=== PATIENT | female | born 1965 | race Two or more races ===

== ENCOUNTER 2021-09-06 18:20 | Inpatient (IN) | payer MEDICAID ==
[~2021-09-06] VITALS: Ht 162.6 cm; Wt 65.8 kg
[2021-09-06 21:14] LABS: BASOPHILS % (AUTO) 0.6 % (0.0-2.0); EOSINOPHILS % (AUTO) 1.5 % (0.0-6.0); HEMATOCRIT 35 % (33-45); HEMOGLOBIN 11.3 g/dL (11.5-14.8); LYMPHOCYTES # (AUTO) 1.7 K/uL (0.8-4.8); LYMPHOCYTES % (AUTO) 33.5 % (20.0-44.0); MEAN CORPUSCULAR HGB CONC 32 g/dl (31.0-36.0); MEAN CORPUSCULAR VOLUME 84 fL (82-100); MONOCYTES # (AUTO) 0.3 K/uL (0.1-1.30); MONOCYTES % (AUTO) 6.3 % (2.0-12.0); NEUTROPHILS % (AUTO) 58.1 % (43.0-81.0); PLATELET COUNT (AUTO) 183 K/uL (150-450); RED BLOOD CELL COUNT(AUTO) 4.17 MIL/uL (4.0-5.2); WHITE BLOOD COUNT (AUTO) 5.1 K/uL (4.3-11.0)
[2021-09-06 21:32] LABS: CALCIUM, SERUM 8.5 mg/dL (8.5-10.1); CREATININE 5.7 mg/dL (0.6-1.3); POTASSIUM 5.6 mmol/L (3.5-5.1)
[2021-09-06 21:34] LABS: BILIRUBIN,URINE NEGATIVE (NEGATIVE); COLOR,URINE YELLOW (YELLOW); LEUKOCYTE ESTERASE ,URINE MODERATE (NEGATIVE); NITRITE, URINE NEGATIVE (NEGATIVE); PH,URINE 7.5 (5.0-8.0); PROTEIN,URINE TRACE mg/dl (NEGATIVE); UGLUCOSE >=1000 mg/dL (NEGATIVE); UROBILINOGEN,URINE 0.2 EU/dL (0.2)
[2021-09-06 21:41] LABS: BACTERIA,URINE 4+ /HPF (None Seen); SQUAMOUS EPITHELIAL CELL,UR 0-2 /HPF (None Seen); WBC,URINE 51-80 /HPF (0-3)
[2021-09-06] MEDS ORDERED: INSULIN REGULAR, HUMAN 100 UNIT/ML 10 ML VIAL ONE (22:20)
[2021-09-06] MEDS ORDERED: CEFTRIAXONE 1 G in IV D5W 50 ML IV ONE (22:30)
[2021-09-06] MEDS ORDERED: INSULIN REGULAR, HUMAN 100 UNIT/ML 10 ML VIAL SQ ONE (22:30)
[2021-09-06] MEDS ORDERED: CEFTRIAXONE 1GM BAG (ER ONLY) 50 ML IV ONE (23:36)
[2021-09-07 02:32] LABS: CALCIUM, SERUM 8.7 mg/dL (8.5-10.1); CREATININE 5.8 mg/dL (0.6-1.3); POTASSIUM 4.7 mmol/L (3.5-5.1)
[2021-09-07] MEDS ORDERED: ACETAMINOPHEN 325 MG TABLET PO PRN (03:30)
[2021-09-07] MEDS ORDERED: MAG HYDROX/AL HYDROX/SIMETH 30 ML UDC PO PRN (03:30)
[2021-09-07] MEDS ORDERED: ZOLPIDEM TARTRATE 5 MG TABLET PO PRN (03:30)
[2021-09-07] MEDS ORDERED: Z GUARD REMEDY 4 OZ OINT TP PRN (03:30)
[2021-09-07] MEDS ORDERED: ONDANSETRON HCL/PF 4 MG/2 ML VIAL IVP PRN (03:30)
[2021-09-07] MEDS ORDERED: DEXTROSE 50%-WATER 50 ML DISP.SYRIN IV PRN (03:30)
[2021-09-07] MEDS ORDERED: MAGNESIUM HYDROXIDE 30 ML UDC PO PRN (03:30)
[2021-09-07] MEDS ORDERED: IV NS 0.9% 1,000 ML IV SCH (03:30)
[2021-09-07] MEDS: BLOOD SUGAR DIAGNOSTIC 1 EACH STRIP IN SCH ×4 (07:30→22:58)
[2021-09-07] MEDS ORDERED: INSULIN REGULAR, HUMAN 100 UNIT/ML 10 ML VIAL ONE (07:57)
[2021-09-07] MEDS: INSULIN REGULAR, HUMAN 100 UNIT/ML 3 ML VIAL SQ PRN ×2 (07:58→18:25)
[2021-09-07] MEDS ORDERED: BUME1TAB34 PO (12:57)
[2021-09-07] MEDS ORDERED: CARV12.52 PO (12:57)
[2021-09-07] MEDS ORDERED: INSU100V7 SQ (12:57)
[2021-09-07] MEDS ORDERED: ATOV750O PO (12:57)
[2021-09-07] MEDS ORDERED: AMLO10TA4 PO (12:57)
[2021-09-07] MEDS ORDERED: ERGO500093 PO (12:57)
[2021-09-07] MEDS ORDERED: SEVE800T8 PO (12:57)
[2021-09-07] MEDS ORDERED: INSU100V39 SQ (12:57)
[2021-09-07] MEDS ORDERED: HYDR-4075 PO (12:57)
[2021-09-07] MEDS ORDERED: MULT-754 PO (12:57)
[2021-09-07] MEDS ORDERED: CALC667C6 PO (12:57)
[2021-09-07] MEDS ORDERED: FERR325T23 PO (12:57)
[2021-09-07] MEDS: CEFTRIAXONE 1 G in IV D5W 50 ML IV SCH (23:27)
[2021-09-08 06:49] LABS: BASOPHILS % (AUTO) 0.5 % (0.0-2.0); EOSINOPHILS % (AUTO) 0.4 % (0.0-6.0); HEMATOCRIT 39 % (33-45); HEMOGLOBIN 12.7 g/dL (11.5-14.8); LYMPHOCYTES # (AUTO) 1.2 K/uL (0.8-4.8); LYMPHOCYTES % (AUTO) 28.4 % (20.0-44.0); MEAN CORPUSCULAR HGB CONC 32 g/dl (31.0-36.0); MEAN CORPUSCULAR VOLUME 84 fL (82-100); MONOCYTES # (AUTO) 0.3 K/uL (0.1-1.30); MONOCYTES % (AUTO) 6.6 % (2.0-12.0); NEUTROPHILS # (AUTO) 2.8 K/uL (1.8-8.9); NEUTROPHILS % (AUTO) 64.1 % (43.0-81.0); PLATELET COUNT (AUTO) 229 K/uL (150-450); RED BLOOD CELL COUNT(AUTO) 4.68 MIL/uL (4.0-5.2); WHITE BLOOD COUNT (AUTO) 4.4 K/uL (4.3-11.0)
[2021-09-08] MEDS: BLOOD SUGAR DIAGNOSTIC 1 EACH STRIP IN SCH ×5 (07:52→21:56)
[2021-09-08 08:00] VITALS: BP 105/67
[2021-09-08 08:38] LABS: CALCIUM, SERUM 9.4 mg/dL (8.5-10.1); CREATININE 5.9 mg/dL (0.6-1.3); MAGNESIUM 2.1 mg/dL (1.8-2.4); PHOSPHORUS 7.9 mg/dL (2.5-4.9); POTASSIUM 5.1 mmol/L (3.5-5.1)
[2021-09-08] MEDS: INSULIN REGULAR, HUMAN 100 UNIT/ML 3 ML VIAL SQ PRN ×3 (12:41→21:58)
[2021-09-08] MEDS: SEVELAMER CARBONATE 800 MG TABLET PO SCH ×2 (12:45→17:26)
[2021-09-08] MEDS ORDERED: QUETIAPINE FUMARATE 100 MG TABLET PO SCH ×2 (14:00→22:00)
[2021-09-08] MEDS ORDERED: ALTEPLASE CATHFLO 2 MG/VIAL XX ONE (15:30)
[2021-09-08 15:36] VITALS: BP 115/75
[2021-09-08] MEDS: GABAPENTIN 400 MG CAPSULE PO SCH (17:00)
[2021-09-08 20:00] VITALS: BP 119/80
[2021-09-08] MEDS: HALOPERIDOL 5 MG TABLET PO SCH (21:30)
[2021-09-08] MEDS ORDERED: DEXTROSE 50%-WATER 50 ML DISP.SYRIN IV PRN (22:00)
[2021-09-08] MEDS: CEFTRIAXONE 1 G in IV D5W 50 ML IV SCH (22:34)
[2021-09-09 06:21] LABS: BASOPHILS % (AUTO) 0.5 % (0.0-2.0); EOSINOPHILS % (AUTO) 1.9 % (0.0-6.0); HEMATOCRIT 32 % (33-45); LYMPHOCYTES # (AUTO) 1.9 K/uL (0.8-4.8); LYMPHOCYTES % (AUTO) 50.4 % (20.0-44.0); MEAN CORPUSCULAR HGB CONC 32 g/dl (31.0-36.0); MEAN CORPUSCULAR VOLUME 85 fL (82-100); MONOCYTES # (AUTO) 0.2 K/uL (0.1-1.30); MONOCYTES % (AUTO) 6.3 % (2.0-12.0); NEUTROPHILS # (AUTO) 1.5 K/uL (1.8-8.9); NEUTROPHILS % (AUTO) 40.9 % (43.0-81.0); PLATELET COUNT (AUTO) 173 K/uL (150-450); WHITE BLOOD COUNT (AUTO) 3.8 K/uL (4.3-11.0)
[2021-09-09 06:36] LABS: CALCIUM, SERUM 8.2 mg/dL (8.5-10.1); CREATININE 5.2 mg/dL (0.6-1.3); PHOSPHORUS 5.5 mg/dL (2.5-4.9); POTASSIUM 3.8 mmol/L (3.5-5.1)
[2021-09-09] MEDS: BLOOD SUGAR DIAGNOSTIC 1 EACH STRIP IN SCH ×2 (07:16→22:00)
[2021-09-09] MEDS: SEVELAMER CARBONATE 800 MG TABLET PO SCH ×4 (08:00→18:00)
[2021-09-09 08:24] VITALS: BP 103/69
[2021-09-09] MEDS: GABAPENTIN 400 MG CAPSULE PO SCH ×4 (09:00→17:00)
[2021-09-09] MEDS: QUETIAPINE FUMARATE 100 MG TABLET PO SCH ×3 (09:00→22:33)
[2021-09-09] MEDS: HALOPERIDOL 5 MG TABLET PO SCH ×3 (09:00→22:32)
[2021-09-09] MEDS ORDERED: ZOLPIDEM TARTRATE 5 MG TABLET PO PRN (09:00)
[2021-09-09] MEDS: CALCIUM ACETATE 667 MG CAP/TAB PO SCH ×2 (13:00→18:00)
[2021-09-09] MEDS ORDERED: diphenhydrAMINE HCL 50 MG/ML VIAL IM STA (16:05)
[2021-09-09] MEDS ORDERED: HALOPERIDOL LACTATE INJ 5 MG/ML VIAL IM STA (16:05)
[2021-09-09] MEDS ORDERED: LORAZEPAM INJ 2 MG/ML VIAL IM STA (16:05)
[2021-09-09] MEDS: CARVEDILOL 12.5 MG TABLET PO SCH (17:00)
[2021-09-09] MEDS: hydrALAZINE HCL 10 MG TABLET PO SCH (17:00)
[2021-09-09] MEDS ORDERED: ALBUMIN 25% 25 GM in PREMIX 1 EA IV PRN (21:00)
[2021-09-09 21:27] VITALS: BP 106/59
[2021-09-09] MEDS: INSULIN GLARGINE, 100 UNIT/ML CARTRIDGE SQ SCH (23:17)
[2021-09-09] MEDS: INSULIN REGULAR, HUMAN 100 UNIT/ML 3 ML VIAL SQ PRN (23:33)
[2021-09-10] MEDS: CEFTRIAXONE 1 G in IV D5W 50 ML IV SCH ×2 (00:05→22:09)
[2021-09-10] MEDS ORDERED: DEXTROSE 50%-WATER 50 ML DISP.SYRIN IV PRN (05:30)
[2021-09-10] MEDS ORDERED: *INSULIN REGULAR(HUMULIN R)HUM 100 UNIT/ML VIAL SQ PRN (05:30)
[2021-09-10] MEDS: BLOOD SUGAR DIAGNOSTIC 1 EACH STRIP VI SCH ×4 (07:05→21:29)
[2021-09-10] MEDS: INSULIN REGULAR, HUMAN 100 UNIT/ML 3 ML VIAL SQ PRN ×4 (07:09→18:39)
[2021-09-10 07:11] LABS: BASOPHILS % (AUTO) 0.5 % (0.0-2.0); EOSINOPHILS % (AUTO) 2.2 % (0.0-6.0); HEMATOCRIT 35 % (33-45); HEMOGLOBIN 11.2 g/dL (11.5-14.8); LYMPHOCYTES # (AUTO) 1.8 K/uL (0.8-4.8); LYMPHOCYTES % (AUTO) 46.7 % (20.0-44.0); MEAN CORPUSCULAR HGB CONC 32 g/dl (31.0-36.0); MEAN CORPUSCULAR VOLUME 84 fL (82-100); MONOCYTES # (AUTO) 0.4 K/uL (0.1-1.30); MONOCYTES % (AUTO) 9.9 % (2.0-12.0); NEUTROPHILS # (AUTO) 1.5 K/uL (1.8-8.9); NEUTROPHILS % (AUTO) 40.7 % (43.0-81.0); PLATELET COUNT (AUTO) 177 K/uL (150-450); RED BLOOD CELL COUNT(AUTO) 4.13 MIL/uL (4.0-5.2); WHITE BLOOD COUNT (AUTO) 3.8 K/uL (4.3-11.0)
[2021-09-10 07:28] LABS: CALCIUM, SERUM 8.4 mg/dL (8.5-10.1); CREATININE 4.9 mg/dL (0.6-1.3); MAGNESIUM 2.2 mg/dL (1.8-2.4); POTASSIUM 4.1 mmol/L (3.5-5.1)
[2021-09-10] MEDS ORDERED: SEVELAMER CARBONATE 800 MG TABLET PO SCH (09:00)
[2021-09-10] MEDS: hydrALAZINE HCL 10 MG TABLET PO SCH ×2 (09:00→17:00)
[2021-09-10] MEDS: GABAPENTIN 400 MG CAPSULE PO SCH ×3 (09:02→18:31)
[2021-09-10] MEDS: SEVELAMER CARBONATE 800 MG TABLET PO SCH ×3 (09:02→18:32)
[2021-09-10] MEDS: MULTIVITAMINS,THERAGRAN 1 UDTAB TABLET PO SCH (09:02)
[2021-09-10] MEDS: CALCIUM ACETATE 667 MG CAP/TAB PO SCH ×3 (09:02→18:32)
[2021-09-10] MEDS: QUETIAPINE FUMARATE 100 MG TABLET PO SCH ×2 (09:02→21:29)
[2021-09-10] MEDS: FERROUS SULFATE (325 MG) 325 MG/TAB TABLET PO SCH (09:03)
[2021-09-10] MEDS: HALOPERIDOL 5 MG TABLET PO SCH ×2 (09:03→21:29)
[2021-09-10] MEDS: AMLODIPINE BESYLATE 10 MG TABLET PO SCH (09:04)
[2021-09-10] MEDS: CARVEDILOL 12.5 MG TABLET PO SCH ×2 (09:04→17:00)
[2021-09-10 20:00] VITALS: BP 114/72
[2021-09-10] MEDS: INSULIN GLARGINE, 100 UNIT/ML CARTRIDGE SQ SCH (21:39)
[2021-09-11] MEDS: BLOOD SUGAR DIAGNOSTIC 1 EACH STRIP VI SCH ×2 (06:32→12:13)
[2021-09-11] MEDS: INSULIN REGULAR, HUMAN 100 UNIT/ML 3 ML VIAL SQ PRN ×2 (06:33→12:15)
[2021-09-11 07:38] LABS: HEMOGLOBIN 11.8 g/dL (11.5-14.8)
[2021-09-11 08:06] LABS: BASOPHILS # (AUTO) 0.1 K/uL (0.0-0.2); BASOPHILS % (AUTO) 0.8 % (0.0-2.0); EOSINOPHILS % (AUTO) 2.5 % (0.0-6.0); HEMATOCRIT 37 % (33-45); LYMPHOCYTES # (AUTO) 3.9 K/uL (0.8-4.8); LYMPHOCYTES % (AUTO) 48.2 % (20.0-44.0); MEAN CORPUSCULAR HGB CONC 32 g/dl (31.0-36.0); MEAN CORPUSCULAR VOLUME 86 fL (82-100); MONOCYTES # (AUTO) 0.7 K/uL (0.1-1.30); NEUTROPHILS # (AUTO) 3.2 K/uL (1.8-8.9); NEUTROPHILS % (AUTO) 39.5 % (43.0-81.0); RED BLOOD CELL COUNT(AUTO) 4.32 MIL/uL (4.0-5.2)
[2021-09-11 08:26] VITALS: BP 95/60
[2021-09-11 08:52] LABS: CREATININE 5.5 mg/dL (0.6-1.3); MAGNESIUM 2.5 mg/dL (1.8-2.4); PHOSPHORUS 7.6 mg/dL (2.5-4.9); POTASSIUM 4.9 mmol/L (3.5-5.1)
[2021-09-11] MEDS: CARVEDILOL 12.5 MG TABLET PO SCH (09:00)
[2021-09-11] MEDS: hydrALAZINE HCL 10 MG TABLET PO SCH (09:00)
[2021-09-11] MEDS: AMLODIPINE BESYLATE 10 MG TABLET PO SCH (09:00)
[2021-09-11] MEDS: GABAPENTIN 400 MG CAPSULE PO SCH ×2 (09:51→12:19)
[2021-09-11] MEDS: HALOPERIDOL 5 MG TABLET PO SCH (09:52)
[2021-09-11] MEDS: QUETIAPINE FUMARATE 100 MG TABLET PO SCH (09:52)
[2021-09-11] MEDS: MULTIVITAMINS,THERAGRAN 1 UDTAB TABLET PO SCH (09:52)
[2021-09-11] MEDS: FERROUS SULFATE (325 MG) 325 MG/TAB TABLET PO SCH (09:53)
[2021-09-11] MEDS: CALCIUM ACETATE 667 MG CAP/TAB PO SCH ×2 (10:05→12:19)
[2021-09-11] MEDS: SEVELAMER CARBONATE 800 MG TABLET PO SCH ×2 (10:07→12:19)
[2021-09-11 11:28] LABS: CALCIUM, SERUM 8.5 mg/dL (8.5-10.1)
[2021-09-11] MEDS ORDERED: INSU100V7 SQ (14:40)
[2021-09-11] MEDS ORDERED: Quetiapine Fumarate PO ×2 (14:40)
[2021-09-11] MEDS ORDERED: GABA-536 PO (14:40)
[2021-09-11] MEDS ORDERED: SEVE800T7 PO (14:40)
[2021-09-11] MEDS ORDERED: HALO5TAB8 PO ×2 (14:40)
[2021-09-11] MEDS ORDERED: QUET400T PO (14:41)
[2021-09-11 16:11] VITALS: BP 95/60
[2021-09-11 16:59] LABS: PLATELET COUNT (AUTO) 152 K/uL (150-450)
[2021-09-13] MEDS ORDERED: ERGOCALCIFEROL (VITAMIN D 2) 50,000 UNIT CAPSULE PO SCH (09:00)
== END 2021-09-11 16:15 | disposition home or self-care (01) | DRG 420 ==
LOC: ER 18:47 → TRANSITION 09-07 07:41 → TELE 09-07 08:07 → MED 09-07 08:54
PROVIDERS: ADMIT Family Medicine; ATTEND Student in an Organized Health Care Education/Training Program
PROC: 5A1D70Z Performance of Urinary Filtration, Intermittent, Less than 6 Hours Per Day (ICD-10-PCS; principal; 2021-09-09)
DX: E11.65 Type 2 diabetes mellitus with hyperglycemia (principal); E11.22 Type 2 diabetes mellitus with diabetic chronic kidney disease; I12.0 Hypertensive chronic kidney disease with stage 5 chronic kidney disease or end stage renal disease; E83.39 Other disorders of phosphorus metabolism; N39.0 Urinary tract infection, site not specified; B96.20 Unspecified Escherichia coli [E. coli] as the cause of diseases classified elsewhere; E83.9 Disorder of mineral metabolism, unspecified; F25.9 Schizoaffective disorder, unspecified; N18.6 End stage renal disease; Z99.2 Dependence on renal dialysis; E87.5 Hyperkalemia; E86.1 Hypovolemia; M89.9 Disorder of bone, unspecified; Z79.4 Long term (current) use of insulin; Z79.899 Other long term (current) drug therapy; Z20.822 Contact with and (suspected) exposure to COVID-19
CPT/HCPCS: 36415; 80048-TC; 81001; 82962-TC; 83735-TC; 83970; 84100-TC; 85025-TC; 86706; 87040-TC; 87081-TC; 87086-TC; 87186-TC; 87340; 90935-TC; C9803; G0378; J0696; J1200; J1630; J1815; J2060; J2405; J2997; J7030; J7050; J7060

== ENCOUNTER 2024-03-29 22:35 | Inpatient (IN) | payer MEDICARE, OTHER ==
[~2024-03-29] VITALS: Ht 167.6 cm; Wt 77.1 kg
[~2024-03-29 22:35] MED LIST: AMLO10TA4 PO; ATOV750O PO; BUME1TAB34 PO; CALC667C6 PO; CARV12.52 PO; ERGO500093 PO; FERR325T23 PO; GABA-536 PO; HALO5TAB8 PO; HYDR-4075 PO; INSU100V39 SQ; INSU100V7 SQ; MULT-754 PO; QUET400T PO; SEVE800T7 PO; SEVE800T8 PO
[2024-03-29] MEDS: IV NS 0.9% 1,000 ML BAG IV ONE (23:05)
[2024-03-29 23:31] LABS: BASOPHILS % (AUTO) 0.6 % (0.0-2.0); EOSINOPHILS # (AUTO) 0.1 K/uL (0.0-0.7); EOSINOPHILS % (AUTO) 1.8 % (0.0-6.0); HEMATOCRIT 36 % (33-45); HEMOGLOBIN 11.6 g/dL (11.5-14.8); LYMPHOCYTES # (AUTO) 1.1 K/uL (0.8-4.8); LYMPHOCYTES % (AUTO) 25.7 % (20.0-44.0); MEAN CORPUSCULAR HEMOGLOBIN 30 PG (26.0-33.0); MEAN CORPUSCULAR HGB CONC 32 g/dl (31.0-36.0); MEAN CORPUSCULAR VOLUME 93 fL (82-100); MONOCYTES # (AUTO) 0.4 K/uL (0.1-1.30); MONOCYTES % (AUTO) 9.8 % (2.0-12.0); NEUTROPHILS # (AUTO) 2.6 K/uL (1.8-8.9); NEUTROPHILS % (AUTO) 62.1 % (43.0-81.0); PLATELET COUNT (AUTO) 171 K/uL (150-450); RED BLOOD CELL COUNT(AUTO) 3.86 MIL/uL (4.0-5.2); RED CELL DISTRIBUTION WIDTH 14.7 % (11.5-15.0); WHITE BLOOD COUNT (AUTO) 4.2 K/uL (4.3-11.0)
[2024-03-29 23:49] LABS: INR 1.03 (0.91-1.10); PARTIAL THROMBOPLASTIN TIME 29.3 SEC (24.3-34.3); PROTHROMBIN TIME 10.9 SECS (9.2-11.1)
[2024-03-29 23:57] LABS: CALCIUM, SERUM 8.2 mg/dL (8.5-10.1); CARBON DIOXIDE 22 mmol/L (21-32); CHLORIDE 100 mmol/L (98-107); CREATININE 6.1 mg/dL (0.6-1.3); GLUCOSE 215 mg/dL (74-106); POTASSIUM 4.4 mmol/L (3.5-5.1); SODIUM SERUM 137 mmol/L (136-145); UREA NITROGEN, BLOOD 32 mg/dL (7-18)
[2024-03-29 23:58] LABS: SERUM AMMONIA 22 umol/L (11-32)
[2024-03-30] VITALS (7 sets, daily range): BP systolic 80–114; BP diastolic 43–70; TEMP 97.5–98.1; O2SAT 96–100
[2024-03-30 00:03] LABS: ALCOHOL, BLOOD 3 mg/dL (0-10)
[2024-03-30 00:04] LABS: LACTIC ACID 1.7 mmol/L (0.4-2.0)
[2024-03-30 00:05] LABS: ACETAMINOPHEN <10 ug/ml (10-30); SALICYLATE 2.1 mg/dL (2.8-20.0)
[2024-03-30] MEDS: IV NS 0.9% 1,000 ML BAG IV ONE (00:05)
[2024-03-30 00:11] LABS: ALANINE AMINOTRANSFERASE 10 U/L (12-78); ALKALINE PHOSPHATASE 322 U/L (46-116); ASPARTATE AMINOTRANSFERASE 9 U/L (15-37); BILIRUBIN,DIRECT 0.1 mg/dL (0.0-0.2); BILIRUBIN,TOTAL 0.3 mg/dL (0.2-1.0); LIPASE 57 U/L (16-77); TOTAL PROTEIN, SERUM 7.1 g/dL (6.4-8.2)
[2024-03-30] MEDS ORDERED: ZOLPIDEM TARTRATE 5 MG TABLET PO PRN (02:30)
[2024-03-30] MEDS ORDERED: MAG HYDROX/AL HYDROX/SIMETH 30 ML UDC PO PRN (02:30)
[2024-03-30] MEDS ORDERED: ENOXAPARIN SODIUM 40 MG/0.4 ML DISP.SYRIN SQ SCH (02:30)
[2024-03-30] MEDS ORDERED: Z GUARD REMEDY 4 OZ OINT TP PRN (02:30)
[2024-03-30] MEDS ORDERED: MAGNESIUM HYDROXIDE 30 ML UDC PO PRN (02:30)
[2024-03-30] MEDS ORDERED: INSULIN REGULAR, HUMAN 100 UNIT/ML 10 ML VIAL SQ ONE (02:30)
[2024-03-30] MEDS ORDERED: ONDANSETRON HCL/PF 4 MG/2 ML VIAL IVP PRN (02:30)
[2024-03-30] MEDS ORDERED: [UNRECOGNIZED DRUG - OTHER] SQ PRN (03:00)
[2024-03-30] MEDS ORDERED: INSULIN REGULAR, HUMAN 100 UNIT/ML 3 ML VIAL SQ PRN (03:00)
[2024-03-30] MEDS ORDERED: [UNRECOGNIZED DRUG - OTHER] SQ PRN ×5 (03:00)
[2024-03-30] MEDS ORDERED: DEXTROSE 50%-WATER 50 ML DISP.SYRIN IV PRN ×2 (03:00→12:00)
[2024-03-30 03:30] LABS: CALCIUM, SERUM 8.2 mg/dL (8.5-10.1); CARBON DIOXIDE 25 mmol/L (21-32); CHLORIDE 102 mmol/L (98-107); CREATININE 6.2 mg/dL (0.6-1.3); GLUCOSE 193 mg/dL (74-106); POTASSIUM 4.1 mmol/L (3.5-5.1); SODIUM SERUM 137 mmol/L (136-145); UREA NITROGEN, BLOOD 33 mg/dL (7-18)
[2024-03-30 03:44] LABS: ALBUMIN 2.9 g/dL (3.4-5.0); ALKALINE PHOSPHATASE 313 U/L (46-116); ASPARTATE AMINOTRANSFERASE 8 U/L (15-37); BILIRUBIN,DIRECT 0.1 mg/dL (0.0-0.2); BILIRUBIN,TOTAL 0.2 mg/dL (0.2-1.0); MAGNESIUM 2.1 mg/dL (1.8-2.4); PHOSPHORUS 6.8 mg/dL (2.5-4.9); TOTAL PROTEIN, SERUM 6.8 g/dL (6.4-8.2)
[2024-03-30 03:46] LABS: ALANINE AMINOTRANSFERASE < 6 U/L (12-78)
[2024-03-30] MEDS ORDERED: [UNRECOGNIZED DRUG - OTHER] IN SCH (07:30)
[2024-03-30] MEDS: PANTOPRAZOLE 40 MG TABLET.DR PO SCH (08:15)
[2024-03-30] MEDS: BLOOD SUGAR DIAGNOSTIC 1 EACH STRIP IN SCH ×3 (08:15→16:56)
[2024-03-30] MEDS: MIDODRINE HCL (5MG) 5 MG TABLET PO SCH (08:26)
[2024-03-30] MEDS: INSULIN REGULAR, HUMAN 100 UNIT/ML 3 ML VIAL SQ PRN (12:01)
[2024-03-30] MEDS: HEPARIN SODIUM, PORCINE 5000 UNITS/1 ML VIAL SQ SCH (12:30)
[2024-03-30] MEDS ORDERED: DEXTROSE 50%-WATER 50 ML DISP.SYRIN IVP PRN (15:30)
[2024-03-30] MEDS ORDERED: ERGOCALCIFEROL (VITAMIN D 2) 50,000 UNIT CAPSULE PO SCH (16:00)
[2024-03-30 16:14] LABS: BASOPHILS % (AUTO) 0.5 % (0.0-2.0); EOSINOPHILS # (AUTO) 0.1 K/uL (0.0-0.7); EOSINOPHILS % (AUTO) 2.6 % (0.0-6.0); HEMATOCRIT 31 % (33-45); HEMOGLOBIN 9.9 g/dL (11.5-14.8); LYMPHOCYTES # (AUTO) 1.3 K/uL (0.8-4.8); LYMPHOCYTES % (AUTO) 39.6 % (20.0-44.0); MEAN CORPUSCULAR HEMOGLOBIN 30 PG (26.0-33.0); MEAN CORPUSCULAR HGB CONC 32 g/dl (31.0-36.0); MEAN CORPUSCULAR VOLUME 92 fL (82-100); MONOCYTES # (AUTO) 0.3 K/uL (0.1-1.30); MONOCYTES % (AUTO) 8.5 % (2.0-12.0); NEUTROPHILS # (AUTO) 1.6 K/uL (1.8-8.9); NEUTROPHILS % (AUTO) 48.8 % (43.0-81.0); PLATELET COUNT (AUTO) 153 K/uL (150-450); RED BLOOD CELL COUNT(AUTO) 3.34 MIL/uL (4.0-5.2); RED CELL DISTRIBUTION WIDTH 14.8 % (11.5-15.0); WHITE BLOOD COUNT (AUTO) 3.4 K/uL (4.3-11.0)
[2024-03-30] MEDS: ACETAMINOPHEN 325 MG TABLET PO PRN (16:31)
[2024-03-30] MEDS: GABAPENTIN 400 MG CAPSULE PO SCH (16:59)
[2024-03-30] MEDS: QUETIAPINE FUMARATE 100 MG TABLET PO SCH (17:00)
[2024-03-30] MEDS: CALCIUM ACETATE 667 MG CAP/TAB PO SCH (17:03)
[2024-03-30] MEDS: SEVELAMER CARBONATE 800 MG TABLET PO SCH (17:03)
[2024-03-30] MEDS: CEFEPIME 1 GM in IV D5W 50 ML IV SCH (17:56)
[2024-03-30] MEDS: VANCOMYCIN HCL 1.25 GM in IV D5W 250 ML IV ONE (18:12)
[2024-03-30] MEDS ORDERED: HALO5TAB8 PO (18:19)
[2024-03-30] MEDS ORDERED: TRAZ150T75 PO (18:19)
[2024-03-30] MEDS ORDERED: QUET400T PO (18:19)
[2024-03-30] MEDS ORDERED: BENZ2TAB7 PO (18:19)
[2024-03-30] MEDS ORDERED: ATOR40TA PO (18:19)
[2024-03-30] MEDS ORDERED: SODI10PO PO (18:19)
[2024-03-30] MEDS ORDERED: METO25TA4 PO (18:19)
[2024-03-30] MEDS ORDERED: DOCU250C14 PO (18:19)
[2024-03-30] MEDS ORDERED: ASPI-1169 PO (18:19)
[2024-03-30] MEDS ORDERED: LISI10TA29 PO (18:19)
[2024-03-30] MEDS ORDERED: HYDR-4076 PO (18:19)
[2024-03-30] MEDS ORDERED: ATOVAQUONE SUSP 750 MG/5 ML PACKET PO SCH (22:00)
[2024-03-31] VITALS (8 sets, daily range): BP systolic 88–119; BP diastolic 55–87; TEMP 97.1–98.5; O2SAT 97–100
[2024-03-31] MEDS ORDERED: VANCOMYCIN POST DIALYSIS 500MG IV PRN (06:00)
[2024-03-31 07:50] LABS: CALCIUM, SERUM 8.4 mg/dL (8.5-10.1); CREATININE 5.1 mg/dL (0.6-1.3); POTASSIUM 4.1 mmol/L (3.5-5.1)
[2024-03-31] MEDS: FERROUS SULFATE (325 MG) 325 MG/TAB TABLET PO SCH (08:33)
[2024-03-31] MEDS: INSULIN GLARGINE, 100 UNIT/ML CARTRIDGE SQ SCH (08:38)
[2024-03-31] MEDS ORDERED: DOCUSATE SODIUM 250 MG CAPSULE PO PRN (10:30)
[2024-03-31] MEDS: IV NS 0.9% 500 ML IV ONE (16:37)
[2024-03-31] MEDS: HALOPERIDOL 5 MG TABLET PO SCH (17:00)
[2024-03-31] MEDS: BENZTROPINE MESYLATE (1 MG) 1 MG TABLET PO SCH (17:00)
[2024-03-31] MEDS: TRAZODONE 50 MG TABLET PO SCH (21:27)
[2024-03-31] MEDS: ATORVASTATIN 40 MG TABLET PO SCH (21:27)
[2024-03-31] MEDS: QUETIAPINE FUMARATE 100 MG TABLET PO SCH (21:28)
[2024-03-31] MEDS ORDERED: QUETIAPINE FUMARATE 100 MG TABLET PO SCH (22:00)
[2024-04-01] VITALS: BP 127/71; TEMP 98.3; O2SAT 100
[2024-04-01 04:00] VITALS: BP 102/89; TEMP 98.3; O2SAT 99
[2024-04-01 07:31] LABS: BASOPHILS % (AUTO) 0.7 % (0.0-2.0); EOSINOPHILS # (AUTO) 0.1 K/uL (0.0-0.7); EOSINOPHILS % (AUTO) 3.1 % (0.0-6.0); HEMATOCRIT 34 % (33-45); HEMOGLOBIN 11.2 g/dL (11.5-14.8); LYMPHOCYTES # (AUTO) 1.7 K/uL (0.8-4.8); LYMPHOCYTES % (AUTO) 42.7 % (20.0-44.0); MEAN CORPUSCULAR HEMOGLOBIN 30 PG (26.0-33.0); MEAN CORPUSCULAR HGB CONC 33 g/dl (31.0-36.0); MEAN CORPUSCULAR VOLUME 91 fL (82-100); MONOCYTES # (AUTO) 0.3 K/uL (0.1-1.30); MONOCYTES % (AUTO) 8.9 % (2.0-12.0); NEUTROPHILS # (AUTO) 1.7 K/uL (1.8-8.9); NEUTROPHILS % (AUTO) 44.6 % (43.0-81.0); PLATELET COUNT (AUTO) 172 K/uL (150-450); RED BLOOD CELL COUNT(AUTO) 3.72 MIL/uL (4.0-5.2); RED CELL DISTRIBUTION WIDTH 14.6 % (11.5-15.0); WHITE BLOOD COUNT (AUTO) 3.9 K/uL (4.3-11.0)
[2024-04-01 07:37] LABS: CALCIUM, SERUM 8.6 mg/dL (8.5-10.1); CREATININE 5.7 mg/dL (0.6-1.3); POTASSIUM 4.2 mmol/L (3.5-5.1)
[2024-04-01 08:00] VITALS: BP 124/70; TEMP 97.1; O2SAT 99
[2024-04-01] MEDS: ASPIRIN 81 MG TAB.CHEW PO SCH (08:20)
[2024-04-01] MEDS: MIDODRINE HCL (5MG) 5 MG TABLET PO SCH (09:30)
[2024-04-01 12:00] VITALS: BP 125/75; TEMP 97.7; O2SAT 95
[2024-04-01] MEDS: LORAZEPAM 1 MG TABLET PO PRN (12:53)
[2024-04-01] MEDS: ALTEPLASE CATHFLO 2 MG/VIAL XX ONE (15:09)
[2024-04-01 16:00] VITALS: BP 133/67; TEMP 97.5; O2SAT 100
[2024-04-01 20:00] VITALS: BP 117/63; TEMP 97.5; O2SAT 100
[2024-04-02] VITALS (7 sets, daily range): BP systolic 87–136; BP diastolic 45–69; TEMP 97.5–99.1; O2SAT 96–100
[2024-04-02] MEDS: SODIUM POLYSTYRENE SULFONATE 15 G/60 ML BOTTLE PO SCH (08:16)
[2024-04-02 08:18] LABS: CALCIUM, SERUM 8.4 mg/dL (8.5-10.1); CREATININE 6.3 mg/dL (0.6-1.3); POTASSIUM 4.6 mmol/L (3.5-5.1)
[2024-04-02] MEDS ORDERED: MIDO5TAB4 PO (10:56)
[2024-04-02] MEDS ORDERED: PANT40TA49 PO (10:56)
[2024-04-02] MEDS: ALBUMIN 25% 25 GM in PREMIX 1 EA IV PRN (15:01)
[2024-04-03] VITALS (7 sets, daily range): BP systolic 99–137; BP diastolic 41–81; TEMP 97.5–98.4; O2SAT 96–100
[2024-04-03 02:12] LABS: HEPATITIS B CORE AB, TOTAL Negative (Negative); HEPATITIS B SURFACE AB Non Reactive (.)
[2024-04-03 08:01] LABS: BASOPHILS % (AUTO) 0.5 % (0.0-2.0); EOSINOPHILS # (AUTO) 0.1 K/uL (0.0-0.7); EOSINOPHILS % (AUTO) 3.1 % (0.0-6.0); HEMATOCRIT 29 % (33-45); HEMOGLOBIN 9.8 g/dL (11.5-14.8); LYMPHOCYTES # (AUTO) 1.6 K/uL (0.8-4.8); LYMPHOCYTES % (AUTO) 45.8 % (20.0-44.0); MEAN CORPUSCULAR HEMOGLOBIN 30 PG (26.0-33.0); MEAN CORPUSCULAR HGB CONC 34 g/dl (31.0-36.0); MEAN CORPUSCULAR VOLUME 91 fL (82-100); MONOCYTES # (AUTO) 0.4 K/uL (0.1-1.30); MONOCYTES % (AUTO) 12.8 % (2.0-12.0); NEUTROPHILS # (AUTO) 1.3 K/uL (1.8-8.9); NEUTROPHILS % (AUTO) 37.8 % (43.0-81.0); PLATELET COUNT (AUTO) 158 K/uL (150-450); RED BLOOD CELL COUNT(AUTO) 3.23 MIL/uL (4.0-5.2); RED CELL DISTRIBUTION WIDTH 14.5 % (11.5-15.0); WHITE BLOOD COUNT (AUTO) 3.5 K/uL (4.3-11.0)
[2024-04-03 08:09] LABS: CALCIUM, SERUM 8.9 mg/dL (8.5-10.1); CREATININE 5.6 mg/dL (0.6-1.3); PHOSPHORUS 6.1 mg/dL (2.5-4.9); POTASSIUM 4.3 mmol/L (3.5-5.1)
[2024-04-03] MEDS: diphenhydrAMINE HCL 50 MG/ML VIAL IM PRN (08:58)
[2024-04-03] MEDS: HALOPERIDOL LACTATE INJ 5 MG/ML VIAL IM PRN (08:58)
[2024-04-04] VITALS: BP 127/67; TEMP 98.2; O2SAT 98
[2024-04-04 04:00] VITALS: BP 98/67; TEMP 98.4; O2SAT 98
[2024-04-04 08:00] VITALS: BP 104/64
[2024-04-04 16:00] VITALS: BP 138/77; TEMP 97.7; O2SAT 99
[2024-04-04 16:13] VITALS: BP 138/77
== END 2024-04-04 18:00 | disposition home or self-care (01) | DRG 640 ==
LOC: ER 22:36 → TELE-TD 03-30 01:48 → TELE1 04-01 10:28 → MEDSG1 04-04 08:26
PROVIDERS: ADMIT Internal Medicine; ATTEND Student in an Organized Health Care Education/Training Program
PROC: 5A1D70Z Performance of Urinary Filtration, Intermittent, Less than 6 Hours Per Day (ICD-10-PCS; principal; 2024-03-30)
DX: E86.9 Volume depletion, unspecified (principal); N18.6 End stage renal disease; I12.0 Hypertensive chronic kidney disease with stage 5 chronic kidney disease or end stage renal disease; E11.22 Type 2 diabetes mellitus with diabetic chronic kidney disease; D64.9 Anemia, unspecified; D72.819 Decreased white blood cell count, unspecified; E83.39 Other disorders of phosphorus metabolism; F29 Unspecified psychosis not due to a substance or known physiological condition; F31.9 Bipolar disorder, unspecified; M89.8X9 Other specified disorders of bone, unspecified site; Z79.4 Long term (current) use of insulin; Z99.2 Dependence on renal dialysis; R53.1 Weakness; E11.40 Type 2 diabetes mellitus with diabetic neuropathy, unspecified; R74.8 Abnormal levels of other serum enzymes; I95.9 Hypotension, unspecified
CPT/HCPCS: 36415; 70450-TC; 71045-TC; 80048-TC; 80076-TC; 80202-TC; 82040-TC; 82140-TC; 82962-TC; 83605-TC; 83690-TC; 83735-TC; 84100-TC; 84443-TC; 84484-TC; 85025-TC; 85730-TC; 86704; 86706; 87040-TC; 87081-TC; 87340; 90935-TC; A4216; A4223; G0378; G0480; J0692; J1200; J1630; J1644; J1815; J2997; J3370; J7030; J7040; J7060; P9047

== ENCOUNTER 2025-07-02 01:56 | Inpatient (IN) | payer MEDICARE, OTHER ==
[~2025-07-02] VITALS: Ht 162.6 cm; Wt 81.8 kg
[~2025-07-02 01:56] MED LIST changes: -AMLO10TA4 PO; +ASPI-1169 PO; +ATOR40TA PO; -ATOV750O PO; +BENZ2TAB7 PO; -BUME1TAB34 PO; -CALC667C6 PO; -CARV12.52 PO; +DOCU250C14 PO; -ERGO500093 PO; -FERR325T23 PO; -GABA-536 PO; -HYDR-4075 PO; +HYDR-4076 PO; -INSU100V39 SQ; -INSU100V7 SQ; +LISI10TA29 PO; +METO25TA4 PO; +MIDO5TAB4 PO; -MULT-754 PO; +PANT40TA49 PO; -SEVE800T7 PO; -SEVE800T8 PO; +SODI10PO PO; +TRAZ150T75 PO
[2025-07-02] MEDS ORDERED: HALOPERIDOL LACTATE INJ 5 MG/ML VIAL ONE (02:27)
[2025-07-02] MEDS ORDERED: LORAZEPAM INJ 2 MG/ML VIAL ONE (02:27)
[2025-07-02] MEDS: LORAZEPAM INJ 2 MG/ML VIAL IM ONE (02:36)
[2025-07-02] MEDS: HALOPERIDOL LACTATE INJ 5 MG/ML VIAL IM ONE (02:36)
[2025-07-02 04:06] LABS: PLATELET COUNT (AUTO) 210 K/uL (150-450); RED BLOOD CELL COUNT(AUTO) 2.81 MIL/uL (4.0-5.2); RED CELL DISTRIBUTION WIDTH 16.2 % (11.5-15.0); WHITE BLOOD COUNT (AUTO) 4.7 K/uL (4.3-11.0)
[2025-07-02 04:23] LABS: ASPARTATE AMINOTRANSFERASE 19 U/L (15-37); TOTAL PROTEIN, SERUM 7.6 g/dL (6.4-8.2)
[2025-07-02 05:28] LABS: CALCIUM, SERUM 8.9 mg/dL (8.5-10.1); SODIUM SERUM 135 mmol/L (136-145); UREA NITROGEN, BLOOD 57 mg/dL (7-18)
[2025-07-02 05:37] LABS: CREATININE 7.6 mg/dL (0.6-1.3)
[2025-07-02] MEDS ORDERED: Calcium Gluconate 0.465 MEQ/ML VIAL IV ONE (06:08)
[2025-07-02] MEDS ORDERED: INSULIN REGULAR, HUMAN 100 UNIT/ML 10 ML VIAL ONE (06:08)
[2025-07-02] MEDS: Calcium Gluconate 1GM/10ML 4.65 MEQ in IV NS 0.9% 100 ML IV ONE (06:20)
[2025-07-02] MEDS: INSULIN REGULAR, HUMAN 100 UNIT/ML 10 ML VIAL SQ ONE (06:24)
[2025-07-02] MEDS ORDERED: ONDANSETRON HCL/PF 4 MG/2 ML VIAL IVP PRN (06:30)
[2025-07-02] MEDS ORDERED: MAG HYDROX/AL HYDROX/SIMETH 30 ML UDC PO PRN (06:30)
[2025-07-02] MEDS ORDERED: MAGNESIUM HYDROXIDE 30 ML UDC PO PRN (06:30)
[2025-07-02] MEDS ORDERED: DOCUSATE SODIUM 250 MG CAPSULE PO PRN (06:30)
[2025-07-02] MEDS ORDERED: Z GUARD REMEDY 4 OZ OINT TP PRN (06:30)
[2025-07-02] MEDS ORDERED: FERR325T24 PO (07:39)
[2025-07-02] MEDS ORDERED: ACET325T53 PO ×2 (07:39)
[2025-07-02] MEDS ORDERED: CARB400T4 PO (07:39)
[2025-07-02] MEDS ORDERED: DIAZ2TAB3 PO (07:39)
[2025-07-02] MEDS ORDERED: NA P133E RC (07:39)
[2025-07-02] MEDS ORDERED: ASCO500T10 PO (07:39)
[2025-07-02] MEDS ORDERED: INSU100I4 SQ (07:39)
[2025-07-02] MEDS ORDERED: BISA10SU11 RC (07:39)
[2025-07-02] MEDS ORDERED: OLAN20TA3 PO (07:39)
[2025-07-02] MEDS ORDERED: MELA3TAB41 PO (07:39)
[2025-07-02] MEDS ORDERED: MULT-213 PO (07:39)
[2025-07-02] MEDS ORDERED: FOLI0.8T3 PO (07:39)
[2025-07-02] MEDS ORDERED: MAGN400O6 PO (07:39)
[2025-07-02] MEDS ORDERED: FOLI0.8T23 PO (07:39)
[2025-07-02 09:00] VITALS: BP 121/57; TEMP 98.4; O2SAT 99
[2025-07-02] MEDS: BENZTROPINE MESYLATE (1 MG) 1 MG TABLET PO SCH ×2 (09:53→20:33)
[2025-07-02] MEDS: METOPROLOL SUCCINATE 25 MG TAB.SR.24H PO SCH (09:54)
[2025-07-02] MEDS: ASPIRIN 81 MG TAB.CHEW PO SCH (09:54)
[2025-07-02] MEDS: MIDODRINE HCL (5MG) 5 MG TABLET PO SCH (09:54)
[2025-07-02] MEDS: HALOPERIDOL 5 MG TABLET PO SCH (09:55)
[2025-07-02] MEDS: PANTOPRAZOLE 40 MG TABLET.DR PO SCH (09:57)
[2025-07-02 12:00] VITALS: BP 102/66; TEMP 98.1; O2SAT 97
[2025-07-02 16:00] VITALS: BP 97/60; TEMP 99.1; O2SAT 97
[2025-07-02] MEDS ORDERED: TEMAZEPAM 7.5 MG CAPSULE PO PRN (18:00)
[2025-07-02] MEDS ORDERED: OLANZAPINE ZYDIS 5 MG TAB.RAPDIS PO PRN (18:00)
[2025-07-02 20:00] VITALS: BP 105/51; TEMP 98.4; O2SAT 100
[2025-07-02] MEDS: OLANZAPINE ZYDIS 5 MG TAB.RAPDIS PO SCH (20:33)
[2025-07-02] MEDS: DIVALPROEX SODIUM 250 MG TABLET.DR PO SCH (20:33)
[2025-07-02] MEDS: ATORVASTATIN 40 MG TABLET PO SCH (21:03)
[2025-07-02] MEDS ORDERED: TRAZODONE 50 MG TABLET PO SCH (22:00)
[2025-07-02] MEDS ORDERED: QUETIAPINE FUMARATE 100 MG TABLET PO SCH (22:00)
[2025-07-03] VITALS: BP 107/51; TEMP 98.4; O2SAT 100
[2025-07-03 08:10] VITALS: BP 104/57; TEMP 98.1; O2SAT 98
[2025-07-03] MEDS: ACETAMINOPHEN 325 MG TABLET PO PRN (10:25)
[2025-07-03 12:00] VITALS: BP 112/59; TEMP 98.2; O2SAT 97
[2025-07-03 16:10] VITALS: BP 104/55; TEMP 98; O2SAT 96
[2025-07-03 20:00] VITALS: BP 104/55; TEMP 98; O2SAT 96
[2025-07-04] VITALS: BP 104/55; TEMP 98; O2SAT 96
[2025-07-04 04:00] VITALS: BP 104/55; TEMP 98; O2SAT 96
[2025-07-04 08:00] VITALS: BP 126/57; TEMP 98; O2SAT 99
[2025-07-04 12:00] VITALS: BP 114/49
[2025-07-04] MEDS: OLANZAPINE ZYDIS 5 MG TAB.RAPDIS PO SCH ×2 (13:34→21:46)
[2025-07-04] MEDS: ALBUMIN 25% 25 GM in PREMIX 1 EA IV PRN (14:42)
[2025-07-04 15:01] LABS: PLATELET COUNT (AUTO) 210 K/uL (150-450); RED BLOOD CELL COUNT(AUTO) 2.47 MIL/uL (4.0-5.2); RED CELL DISTRIBUTION WIDTH 16.0 % (11.5-15.0); WHITE BLOOD COUNT (AUTO) 3.2 K/uL (4.3-11.0)
[2025-07-04 15:06] LABS: ASPARTATE AMINOTRANSFERASE 16.0 U/L (15-37); CALCIUM, SERUM 8.5 mg/dL (8.5-10.1); CREATININE 4.8 mg/dL (0.6-1.3); PHOSPHORUS 4.0 mg/dL (2.5-4.9); SODIUM SERUM 139.0 mmol/L (136-145); TOTAL PROTEIN, SERUM 6.9 g/dL (6.4-8.2); UREA NITROGEN, BLOOD 33.0 mg/dL (7-18)
[2025-07-04 16:00] VITALS: BP 110/58; TEMP 98.4; O2SAT 98
[2025-07-04 20:00] VITALS: BP 134/89; TEMP 98.4; O2SAT 96
[2025-07-05 04:00] VITALS: BP 135/59; TEMP 97.6; O2SAT 97
[2025-07-05 06:26] LABS: PLATELET COUNT (AUTO) 227 K/uL (150-450); RED BLOOD CELL COUNT(AUTO) 2.70 MIL/uL (4.0-5.2); RED CELL DISTRIBUTION WIDTH 16.0 % (11.5-15.0); WHITE BLOOD COUNT (AUTO) 5.5 K/uL (4.3-11.0)
[2025-07-05 06:53] LABS: ASPARTATE AMINOTRANSFERASE 17.0 U/L (15-37); CALCIUM, SERUM 9.4 mg/dL (8.5-10.1); CREATININE 5.3 mg/dL (0.6-1.3); PHOSPHORUS 5.1 mg/dL (2.5-4.9); SODIUM SERUM 139.0 mmol/L (136-145); TOTAL PROTEIN, SERUM 7.6 g/dL (6.4-8.2); UREA NITROGEN, BLOOD 35.0 mg/dL (7-18)
[2025-07-05 08:20] VITALS: BP 93/54; TEMP 98.4; O2SAT 96
[2025-07-05 13:00] VITALS: BP 114/48
== END 2025-07-05 14:45 | DRG 640 ==
LOC: ER 02:01 → TELE1 07:42 → MEDSG1 07-03 08:33
PROVIDERS: ADMIT Internal Medicine; ATTEND Internal Medicine
PROC: 5A1D70Z Performance of Urinary Filtration, Intermittent, Less than 6 Hours Per Day (ICD-10-PCS; principal; 2025-07-02)
DX: E87.70 Fluid overload, unspecified (principal); N18.6 End stage renal disease; I12.0 Hypertensive chronic kidney disease with stage 5 chronic kidney disease or end stage renal disease; E44.0 Moderate protein-calorie malnutrition; G93.40 Encephalopathy, unspecified; E87.5 Hyperkalemia; E87.1 Hypo-osmolality and hyponatremia; J44.9 Chronic obstructive pulmonary disease, unspecified; Z79.899 Other long term (current) drug therapy; Z99.2 Dependence on renal dialysis; F29 Unspecified psychosis not due to a substance or known physiological condition; E88.09 Other disorders of plasma-protein metabolism, not elsewhere classified; Z68.31 Body mass index [BMI] 31.0-31.9, adult; D64.9 Anemia, unspecified; E83.89 Other disorders of mineral metabolism; E66.01 Morbid (severe) obesity due to excess calories; E11.22 Type 2 diabetes mellitus with diabetic chronic kidney disease; E78.5 Hyperlipidemia, unspecified; F41.9 Anxiety disorder, unspecified; Z91.158 Patient's noncompliance with renal dialysis for other reason; Z79.82 Long term (current) use of aspirin; F31.9 Bipolar disorder, unspecified; E11.29 Type 2 diabetes mellitus with other diabetic kidney complication; Z79.4 Long term (current) use of insulin
CPT/HCPCS: 36415; 80048-TC; 80053-TC; 80076-TC; 82962-TC; 83735-TC; 84100-TC; 85025-TC; 87081-TC; 90935-TC; 97110-TC; 97112-TC; 97530-TC; 97535-TC; A4216; G0378; J0612; J1630; J1815; J2060; J7030; P9047